=== PATIENT | female | born 1965 | race Caucasian/White ===

== ENCOUNTER 2021-07-02 11:13 | Outpatient (CLI) | payer BC, SELFPAY ==
--- NOTE | 2021-07-02 12:24 | ECG_ITS ---
Measurements Intervals [place] Rate: 51 P: 32 MA: 142 QRS: 67 QRSD: 106 T: 40 QT: 415 QTc: 384 Interpretive Statements SINUS BRADYCARDIA BORDERLINE ECG Electronically Signed On 07-02-2021 13:00:36 CORPORATE DEVELOPMENT MANAGER by Timbo Leung D.O.
[2021-07-02 12:45] LABS: Basophils Percent Auto 0.6 % (0.2-1.2); Eosinophils Absolute Auto 0.2 K/mm3 (0-0.3); Eosinophils Percent Auto 4.6 % (0-4.4); Hematocrit 36.7 % (37.0-47.0); Hemoglobin 12.2 g/dL (12.0-15.0); Immature Granulocyte Absolute 0.01 K/mm3 (0.00-0.031); Immature Granulocyte Percent A 0.2 % (0-0.5); Lymphocytes Absolute Auto 2.16 K/mm3 (0.9-3.2); Lymphocytes Percent Auto 43.2 % (18.3-44.2); Mean Corpuscular HGB Conc 33.2 g/dl (32-36); Mean Corpuscular Hemoglobin 33.3 pg (26-34); Mean Corpuscular Volume 100.3 fl (80-100); Mean Platelet Volume 9.5 fl (7.4-10.4); Monocytes Absolute Auto 0.5 K/mm3 (0.1-0.6); Neutrophils Absolute Auto 2.1 K/mm3 (1.3-6.7); Neutrophils Percent Auto 42.4 % (45.5-73.1); Platelet Count Result 232 k/mm3 (150-375); Red Blood Count 3.66 M/mm3 (4.2-5.4)
[2021-07-02 12:50] LABS: Albumin Level 4.3 g/dL (3.5-5.1)
[2021-07-02 12:54] LABS: Anion Gap 6 mmol/L (8-16); Blood Urea Nitrogen 22 mg/dL (7-17); Calcium 9.9 mg/dL (8.4-10.2); Carbon Dioxide 27 mmol/L (22-30); Chloride 107 mmol/L (98-107); Estimated Glomerular Filt Rate 57; Glucose 90 mg/dL (65-110); Potassium 4.2 mmol/L (3.4-5.0); Sodium 140 mmol/L (137-145)
[2021-07-02 12:56] LABS: Urine Cotinine NEGATIVE
[2021-07-02 13:19] LABS: Hemoglobin A1C 5.2 % (<5.7)
== END 2021-07-02 11:14 | disposition home or self-care (01) ==
PROVIDERS: Anesthesiology; PCP Nurse Practitioner Family; Visit Provider Orthopaedic Surgery
DX: Z01.818 Encounter for other preprocedural examination (principal); M17.12 Unilateral primary osteoarthritis, left knee; Z79.899 Other long term (current) drug therapy
CPT/HCPCS: 80048; 80307; 82040; 83036; 85025; 93005

== ENCOUNTER → 2021-07-13 00:11 | Outpatient (CLI) | payer BC, SELFPAY ==
[2021-07-13 18:14] LABS: SARS-CoV-2 RNA PCR Negative
== END ==
PROVIDERS: PCP Nurse Practitioner Family; Visit Provider Orthopaedic Surgery
DX: Z01.812 Encounter for preprocedural laboratory examination (principal); Z20.822 Contact with and (suspected) exposure to COVID-19
CPT/HCPCS: C9803; U0003; U0005

== ENCOUNTER 2021-07-17 00:40 | Day surgery (SDC) | payer BC, SELFPAY ==
[2021-07-02 11:48] VITALS: BP 98/60; PULSE 48; RESP 18; TEMP 36.3; O2SAT 100
--- NOTE | 2021-07-02 12:04 | PC.NURSE ---
Report to the Outpatient Waiting Room, entrance under the green pavilion located off [facility], at time 0600 AM___ on date _07/17/21__. OR Time: 0730 AM__. - You and your visitor will be asked a series of questions to screen for COVID 19 for your protection. - A mask is required within the hospital. - Only one visitor is allowed at this time. Patient visitors will be guided where to wait when not with patient. Preoperative COVID Testing Requirements: No COVID Test needed if: (proof is required; if not received patient will have Rapid Test prior to entry) - Patient has received COVID Vaccine at least 14 days prior to procedure date or - Patient has positive COVID test result within last 90 days of surgery date. COVID Test needed if above criteria is not met If not COVID vaccinated a COVID test must be conducted within 72 hours of surgery and patient is asked to isolate self from time of testing until procedure. You will go to the [facility] for your COVID testing. The [facility] is located at the corner of [address] [facility]. You will only be called if COVID results are positive and your surgeon may reschedule your elective surgery date. COVID TEST SCHEDULED Thursday07/13/21 @ 0930 AM Patients may have clear liquids (water, carbonated beverages, clear teas, apple juice) until 3 hours prior to surgery (0430 AM) with a maximum of 20 ounces. - No food from midnight until time of surgery - Infants may have breast milk until 4 hours before surgery, infant formula 6 hours prior to surgery. - Children will be allowed to drink immediately following surgery. If applicable, please bring a bottle or sippy cup to assist with drinking. Juice, water, soda, and popsicles are readily available. For infants on formula, please bring formula the day of surgery. Pacifiers are allowed. Take the following medications with a SIP of water the morning of surgery: Medications to discontinue per physician _CALL DR. AVERY REGARDING DICLOFENAC, _MULTI VITAMIN_STOP 3 DAYS PRIOR TO SURGERY Date to take last dose___07/13/21 Please no make-up, nail gambian, hairspray, perfume, deodorant, or body powder the day of surgery. No jewelry (including any body piercings) or valuables the day of surgery, leave them at home. Please take a shower or bath the night before, or the morning of, surgery with an antibacterial soap. Wear comfortable, loose fitting clothing. Children are encouraged to wear pajamas. - Jewelry must be removed prior to entering the operating room. Rings and piercings that are not removed may be cut off. - The hospital will not accept responsibility for valuables. - Please leave all valuables, including medications, at home the day of surgery. If you are going home after surgery, a licensed salesperson driver must drive you home. - NO public transportation without another adult. - We recommend that an adult stay with you for 24 hours following discharge. - We also recommend that you do not drive, make important decision, drink alcoholic beverages, or take any drugs that were not prescribed by your health care provider for at least 24 hours after your discharge time. For Pediatric surgeries, we recommend two adults accompany the child home (only one inside the building at this time). Follow any additional instructions given to you from your surgeon. Telephone instructions given to ___PT___and asked if any additional questions and then verbalized understanding. Patient advised to call surgeon office or pre surgery nurse liaison [phone] if any additional questions.
[2021-07-02 12:29] VITALS: BMI 28.3
--- NOTE | 2021-07-16 12:55 | PM.IMHP ---
H&P: HPI History of Present Illness Date/Time: 07/16/21 12:55 The patient is a 55-year-old female who presents with left knee pain due to primary osteoarthritis chronic in nature. She has aching pain worse with activities and relieved by rest. She has problems squatting kneeling twisting or turning going up and down stairs cannot stand or walk for long periods. Patient has x-rays which show severe primary osteoarthritis left knee joint she has been through cortisone hyaluronic acid injections therapy and anti-inflammatory treatment without long-term relief. Patient has [id number] changes has failed conservative measures at this point she has discussed further treatment options in detail Dr. Roblero she would not to proceed with a left total knee arthroplasty. Chief Complaint: Left knee pain due to primary osteoarthritis left knee joint Review of Systems Review of Systems: All systems reviewed & are unremarkable except as noted in HPI and below PMFSH Social History Social History Smoking status: Former smoker Tobacco type: cigarettes Second hand tobacco smoke exposure: Yes Smoking end date: 06/12/21 Additional smoking assessment comments: STATES 1PK/2-3 DAYS/25+YRS Alcohol intake: current Drinks per week: 2 Substance use: current Substance use type: marijuana Other substance usage details: STATES SMOKES AT [facility] TO HELP SLEEP Last use: 08/31/20 Spiritual care concerns: No Meds Home Medications and Allergies Home Medications Medication Instructions Recorded Confirmed Type diclofenac sodium 75 mg PO BID 07/02/21 07/02/21 History hydrochlorothiazide 25 mg QAM 07/02/21 07/02/21 History lisinopril 20 mg QAM 07/02/21 07/02/21 History multivitamin [Multi-Vitamins] 1 tablet PO QAM 07/02/21 07/02/21 History Allergies Allergy/AdvReac Type Severity Reaction Status Date / Time No Known Allergies Allergy Verified 07/02/21 11:55 Exam Narrative: On exam the patient is noted be a well-developed well-nourished female no acute distress alert oriented x3. Normal mood and affect. She is noted to be 5 ft 5 in tall 168 lb. Hearing and vision intact. Respiratory is good no distress. Pulse regular rate rhythm. Abdomen benign. Extremities showed the patient's left knee to be painful with manipulation range of motion. She has crepitation through the arc of motion varus deformity with medial joint line pain left knee. Motion is fairly well maintained. Neurovascularly she is intact knee joint is otherwise stable strength is 5 5 x-rays show advanced coor-fs-abht changes medial compartment left knee. There is no erythema heat effusion or signs of infection. Neurovascularly she is intact skin is intact. Central nervous system exam within normal limits. Assessment and Plan Additional Plan Patient has severe primary osteoarthritis left knee joint. The patient has discussed risks benefits limitations and alternatives to surgery in great detail with Dr. Roblero, the patient is now ready to proceed with a left total knee arthroplasty. The patient is scheduled to undergo surgery 07/17/2021 at [facility] with Dr. Roblero. The patient voiced understanding and agrees with the above plan.
[2021-07-17] VITALS (13 sets, daily range): BP systolic 102–161; BP diastolic 55–89; PULSE 60–100; RESP 10–20; TEMP 36.2–37.2; O2SAT 92–100
--- NOTE | ~2021-07-17 | XR_ITS ---
EXAMINATION: XR knee LT 2V DATE: 07/17/2021 09:36 INDICATION: Postoperative evaluation following left total knee arthroplasty. TECHNIQUE: Anteroposterior and lateral views of the left knee were obtained. COMPARISON: None. FINDINGS: Left total knee arthroplasty with patellar resurfacing appears well seated and in near anatomic align ment. No fractures identified. Skin jolly and expected postoperative subcutaneous and intra-articu lar gas. IMPRESSION: 1. Left total knee arthroplasty, negative for postoperative purposes. Reviewed, dictated and finalized at location A. EL MANAGER
[2021-07-17] MEDS: LACTATED RINGERS 1,000 ML 30 ML IV CONT ×2 (06:30→09:27)
[2021-07-17] MEDS: ACETAMINOPHEN 500 MG TABLET 1000 MG PO (06:30)
[2021-07-17] MEDS: TRANEXAMIC ACID 1,000MG/ISO100 1,000 MG/100 ML BAG 200 MG IVPB (06:48)
--- NOTE | 2021-07-17 07:10 | WPDANESEPP ---
Anes - Eval Pre Procedure Procedure: Operation Date: 07/17/21 07:30 Proposed Procedures p Left Total Knee Arthroplasty - Ricardo Roblero MD Date/Time: 07/17/21 07:10 Pre Op Diagnosis: OA Left Knee Patient Data Age: 55 Gender: F Height: 1.63 m Weight: 75.6 kg Last Vital Signs Temp 36.2 C L 07/17/21 06:19 Pulse 65 07/17/21 06:19 Resp 20 07/17/21 06:19 BP 102/60 07/17/21 06:19 Pulse Ox 98 07/17/21 06:19 Allergies Allergy/AdvReac Type Severity Reaction Status Date / Time No Known Allergies Allergy Verified 07/17/21 06:26 Home Medications Medication Instructions Recorded Confirmed Type diclofenac sodium 75 mg PO BID 07/02/21 07/17/21 History hydrochlorothiazide 25 mg QAM 07/02/21 07/17/21 History lisinopril 20 mg QAM 07/02/21 07/17/21 History multivitamin [Multi-Vitamins] 1 tablet PO QAM 07/02/21 07/17/21 History Patient hx anesthesia problems: none Family hx anesthesia problems: none Results Review: All pre-operative results and documents have been reviewed as part of the pre-operative evaluation. [facility] Social History Social History Smoking status: Former smoker Tobacco type: cigarettes Second hand tobacco smoke exposure: Yes Smoking end date: 06/12/21 Additional smoking assessment comments: STATES 1PK/2-3 DAYS/25+YRS Alcohol intake: current Drinks per week: 2 Substance use: current Substance use type: marijuana Other substance usage details: STATES SMOKES AT [facility] TO HELP SLEEP Last use: 08/31/20 Living arrangements: alone Spiritual care concerns: No Exam Day of Procedure 07/17/21 07:10
--- NOTE | 2021-07-17 07:14 | WPDHPUPDATE1 ---
History and Physical Update Update Date/Time: 07/17/21 07:14 History and Physical has been reviewed, including an updated exam of the patient. There are NO changes in the patient's condition. Risks, benefits, and alternatives have been discussed and questions answered. Patient agrees to proceed with procedure.
--- NOTE | 2021-07-17 07:19 | WPDANESEFPP ---
Anes - Eval Final PreProcedure Day of Procedure 07/17/21 07:19 Patient weight: overweight Heart: regular rate and rhythm Lungs: clear to auscultation Airway: Mallampati scale class II Neurological: alert and oriented Last oral intake: >/= 8 hours ASA classification: III Emergent: no Anesthetic plan: proceed Anesthesia type and monitoring: general LMA and standard monitoring Results Review: All pre-operative results and documents have been reviewed as part of the pre-operative evaluation. Informed Consent: The patient's anesthetic plan and its attendant risks and benefits were discussed with the patient/family/POA. Questions were solicited and answers provided to the satisfaction of the patient/family/POA.
[2021-07-17] MEDS: ceFAZolin 2 GM/D5W 50 ML 2 GM/50 ML BAG IVPB (07:27)
[2021-07-17] MEDS: GENTAMICIN BONE CEMENT REFOBACIN 1 EACH TOPICAL (07:54)
--- NOTE | 2021-07-17 08:52 | W.PM.PROC2 ---
Procedure Note - Detailed Date of Procedure 07/17/21 Pre-op Diagnosis OA Left Knee Post-op Diagnosis same Procedure Performed [Left] total knee arthroplasty Surgeon Ricardo Roblero MD Youth Services Specialist Jose Best Anesthesia general Description of Procedure The patient was brought to the operating room. General anesthetic was administered. Placed on the operating table and sterilely prepped and draped in usual manner. A longitudinal incision was made. Tourniquet inflated to 300 mmHg for a total of [time] minutes. Dissection carried down to the fascia. Medial parapatellar incision was made and the patella subluxated laterally. Patella cut from [25] to [15] mm and sized for a [34] mm button. The tibia cut perpendicular to the long axis and femur cut in 5 degrees of valgus, a [65] femur trialed. [67] tibia was felt to fit the best. The soft tissue balanced, hemostasis obtained. All [address], [67] tibia, [65] femur, [34] mm patella, and [12mm ] mm poly. Motion was 0-125 degrees with good stablility and flexion and extension. The wound was closed with #2 vicryl, 2-0 Vicryl and jolly. Estimated Blood Loss 200 Drains No Packing No Pathology none sent Complications No immediate complications Condition stable Disposition PACU
[2021-07-17] MEDS: fentaNYL CITRATE INJ (*CRX) 100 MCG/2 ML VIAL 25 MCG IV PUSH ×4 (09:41→10:05)
[2021-07-17] MEDS: HYDROmorphone HCL INJ (*CRX) 1 MG/ML SYR 0.5 MG IV PUSH ×2 (10:21→10:37)
--- NOTE | 2021-07-17 11:34 | ADMGEN ---
This patient, Adela Becker, was admitted to Medical Room 255-01. Patient/family oriented to hospital policies and general routines including ID bracelet, bed and alarms, visiting hours, pain management, procedures, bathroom and other care routines, personal items, smoking policy, room service/diet, and visiting hours. Information on how to activate the Rapid Response Team has been discussed. Patient/Family are encouraged to report perceived risks to care and to ask questions if they do not understand what they are told or what they should do.
[2021-07-17] MEDS: SENNA/DOCUSATE SODIUM TABLET 2 TAB PO ×2 (11:43→17:08)
[2021-07-17] MEDS: polyethylene glycoL 3350 17 GM POWD.PACK PO (11:43)
[2021-07-17] MEDS: lisinopriL 20 MG TABLET PO (11:43)
[2021-07-17] MEDS: HYDROcodone/acetaminophen (*CRX) 7.5-325 MG TABLET 1 TAB PO ×2 (11:43→22:55)
--- NOTE | 2021-07-17 13:00 | P.CONIM_ITS ---
Assessment and Plan Assessment and plan (1) Total knee replacement status: Code(s): Z96.659 - Presence of unspecified artificial knee joint Status: Acute Assessment and Plan: * Postop day 0 * postop care to be managed by Dr. Roblero * pain: oxycodone 2.5 mg p.o. Q 4 p.r.n., Percocet 1 tablet p.o. Q 4 p.r.n., [place] 1 tablet p.o. q.6 p.r.n., Celebrex 200 mg p.o. twice a day * bowel maintenance: MiraLax, senna * Ancef x3 bags * PT and OT * Xarelto 10 mg p.o. times 12 doses (2) HTN (hypertension): Code(s): I10 - Essential (primary) hypertension Status: Acute Assessment and Plan: * current blood pressure 145/74 * continue patient's home lisinopril 20 mg p.o. daily and hydrochlorothiazide 25 mg p.o. daily * trend blood pressure * adjust therapy as indicated (3) Overweight: Code(s): E66.3 - Overweight Status: Acute Assessment and Plan: * BMI 28.6 * lifestyle changes * supportive care (4) Marijuana use: Code(s): F12.90 - Cannabis use, unspecified, uncomplicated Status: Acute Assessment and Plan: * patient uses to help with rest at night * education about cessation (5) Cigarette smoker: Code(s): F17.210 - Nicotine dependence, cigarettes, uncomplicated Status: Acute Assessment and Plan: * patient smokes about 1 pack every 2-3 days for 25 years * smoking cessation * nicotine patch and gum ordered Additional Plan thank you for asking us to be a consult feel free to call us with help her questions. HPI Data of Consult Consult date: 07/17/21 Requesting Physician: Ricardo Roblero MD Primary Care Provider: Rosalie Santiago, SECURITY SYSTEM INSTALLER Consult Narrative Narrative: Date of service: 07/17/21 Tayla Becker is a 55 year old female With a past medical history os teoarthritis and hypertension who had an elective left total knee replacement by Dr. Roblero on 07/17/2021. Patient has been experiencing arthritis that has induced pain, immobility, and swelling that was never relieved by rest. Patient is currently out of surgery and is doing well. Sitting up in bed and she is eating. She feels again states that her pain is about a 5/10. Patient denies any other symptomatology including chest pain, shortness of breath, nausea, vomiting, diarrhea, constipation, sweats, fevers, chills. Review of Systems Review of Systems: All systems reviewed & are unremarkable except as noted in HPI and below PMFSH Past Medical History Medical History (Updated 07/17/21 @ 13:15 by BALTA Linton) HTN (hypertension) Surgical History Surgical History (Updated 07/17/21 @ 13:15 by BALTA Linton) Total knee replacement status Left Family History Family History (Updated 07/17/21 @ 13:15 by BALTA Linton) Mother Carcinoma of colon Social History Social History (Updated 07/17/21 @ 13:17 by BALTA Linton) Social History: Patient currently lives with her twin sister. Patient denies having pets or kids. Patient wishes to be a full code and her sister Mar is going to be her surrogate if decisions to be made. Smoking status: Current some day smoker Tobacco type: cigarettes Second hand tobacco smoke exposure: Yes Smoking end date: 06/12/21 Additional smoking assessment comments: STATES 1PK/2-3 DAYS/25+YRS Alcohol intake:
--- NOTE | 2021-07-17 13:00 | PM.IMCN ---
Assessment and Plan Assessment and plan (1) Total knee replacement status: Code(s): Z96.659 - Presence of unspecified artificial knee joint Status: Acute Assessment and Plan: Postop day 0 postop care to be managed by Dr. Roblero pain: oxycodone 2.5 mg p.o. Q 4 p.r.n., Percocet 1 tablet p.o. Q 4 p.r.n., [place] 1 tablet p.o. q.6 p.r.n., Celebrex 200 mg p.o. twice a day bowel maintenance: MiraLax, senna Ancef x3 bags PT and OT Xarelto 10 mg p.o. times 12 doses (2) HTN (hypertension): Code(s): I10 - Essential (primary) hypertension Status: Acute Assessment and Plan: current blood pressure 145/74 continue patient's home lisinopril 20 mg p.o. daily and hydrochlorothiazide 25 mg p.o. daily trend blood pressure adjust therapy as indicated (3) Overweight: Code(s): E66.3 - Overweight Status: Acute Assessment and Plan: BMI 28.6 lifestyle changes supportive care (4) Marijuana use: Code(s): F12.90 - Cannabis use, unspecified, uncomplicated Status: Acute Assessment and Plan: patient uses to help with rest at night education about cessation (5) Cigarette smoker: Code(s): F17.210 - Nicotine dependence, cigarettes, uncomplicated Status: Acute Assessment and Plan: patient smokes about 1 pack every 2-3 days for 25 years smoking cessation nicotine patch and gum ordered Additional Plan thank you for asking us to be a consult feel free to call us with help her questions. HPI Data of Consult Consult date: 07/17/21 Requesting Physician: Ricardo Roblero MD Primary Care Provider: Rosalie Santiago, TEST TECH Consult Narrative Narrative: Date of service: 07/17/21 1300 Adela Becker is a 55 year old female With a past medical history osteoarthritis and hypertension who had an elective left total knee replacement by Dr. Roblero on 07/17/2021. Patient has been experiencing arthritis that has induced pain, immobility, and swelling that was never relieved by rest. Patient is currently out of surgery and is doing well. Sitting up in bed and she is eating. She feels again states that her pain is about a 5/10. Patient denies any other symptomatology including chest pain, shortness of breath, nausea, vomiting, diarrhea, constipation, sweats, fevers, chills. Review of Systems Review of Systems: All systems reviewed & are unremarkable except as noted in HPI and below PMFSH Past Medical History Medical History (Updated 07/17/21 @ 13:15 by BALTA Linton) HTN (hypertension) Surgical History Surgical History (Updated 07/17/21 @ 13:15 by BALTA Linton) Total knee replacement status Left Family History Family History (Updated 07/17/21 @ 13:15 by BALTA Linton) Mother Carcinoma of colon Social History Social History (Updated 07/17/21 @ 13:17 by BALTA Linton) Social History: Patient currently lives with her twin sister. Patient denies having pets or kids. Patient wishes to be a full code and her sister Mar is going to be her surrogate if decisions to be made. 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
[2021-07-17] MEDS: oxyCODONE/ACETAMINOPHEN (*CRX) 5-325 MG TABLET 1 TABLET PO (14:47)
[2021-07-17] MEDS: RIVAROXABAN 10 MG TABLET PO (17:08)
[2021-07-17] MEDS: CELECOXIB 200 MG CAPSULE PO (17:08)
[2021-07-18 00:45] VITALS: BP 127/58; PULSE 90; RESP 16; TEMP 37.2; O2SAT 94
[2021-07-18] MEDS: oxyCODONE HCL (*CRX) 2.5 MG TAB IR PO (02:34)
[2021-07-18 04:45] VITALS: BP 127/84; PULSE 113; RESP 18; TEMP 37; O2SAT 98
[2021-07-18] MEDS: oxyCODONE/ACETAMINOPHEN (*CRX) 5-325 MG TABLET 1 TABLET PO ×2 (05:16→08:48)
[2021-07-18 06:01] LABS: Basophils Percent Auto 0.2 % (0.2-1.2); Hematocrit 30.9 % (37.0-47.0); Hemoglobin 10.7 g/dL (12.0-15.0); Immature Granulocyte Absolute 0.05 K/mm3 (0.00-0.031); Immature Granulocyte Percent A 0.5 % (0-0.5); Lymphocytes Absolute Auto 2.14 K/mm3 (0.9-3.2); Lymphocytes Percent Auto 22.2 % (18.3-44.2); Mean Corpuscular HGB Conc 34.6 g/dl (32-36); Mean Corpuscular Hemoglobin 34.1 pg (26-34); Mean Corpuscular Volume 98.4 fl (80-100); Mean Platelet Volume 9.4 fl (7.4-10.4); Neutrophils Absolute Auto 6.5 K/mm3 (1.3-6.7); Neutrophils Percent Auto 67.1 % (45.5-73.1); Platelet Count Result 198 k/mm3 (150-375); Red Blood Count 3.14 M/mm3 (4.2-5.4); Red Cell Distribution Width 12.7 % (11.5-14.5); White Blood Count 9.6 K/mm3 (4.5-10.0)
[2021-07-18 06:16] LABS: Anion Gap 6 mmol/L (8-16); Blood Urea Nitrogen 28 mg/dL (7-17); Calcium 9.3 mg/dL (8.4-10.2); Carbon Dioxide 25 mmol/L (22-30); Chloride 105 mmol/L (98-107); Estimated CRCL calculation 50 ml/min; Estimated Glomerular Filt Rate 51; Glucose 130 mg/dL (65-110); Potassium 3.6 mmol/L (3.4-5.0); Sodium 136 mmol/L (137-145)
--- NOTE | 2021-07-18 08:09 | PM.IMPN ---
Progress Note: A&P Assessment and Plan (1) Total knee replacement status: Code(s): Z96.659 - Presence of unspecified artificial knee joint Status: Acute Assessment and Plan: Postop day 1 and doing well - postop care to be managed by Dr. Roblero - will need DVT prophylaxis at discharge, discussed with RN - continue [place] for pain -will need to complete stairs with PT prior to d/c. She lives in the basement with her sister upstairs. (2) HTN (hypertension): Code(s): I10 - Essential (primary) hypertension Status: Acute Assessment and Plan: current blood pressure 127/84 -continue patient's home lisinopril 20 mg p.o. daily and hydrochlorothiazide 25 mg p.o. daily (3) Overweight: Code(s): E66.3 - Overweight Status: Acute Assessment and Plan: BMI 28.6 - encouraged lifestyle changes (4) Marijuana use: Code(s): F12.90 - Cannabis use, unspecified, uncomplicated Status: Acute Assessment and Plan: chronic, encouraged lifestyle changes (5) Cigarette smoker: Code(s): F17.210 - Nicotine dependence, cigarettes, uncomplicated Status: Acute Assessment and Plan: patient smokes about 1 pack every 2-3 days for 25 years - encouraged lifestyle changes Time Spent With Patient Time with patient: 25 - 35 minutes Subjective Date/time seen: 07/18/21 08:09 Interval history: Pt is a 55-year-old female here for left total knee arthroplasty. Patient was seen today and states she is feeling better. She still has some pain to the left knee but is able to do physical therapy. She has some numbness around the incision site but no numbness to her leg. she is eating and drinking well with no nausea, vomiting or diarrhea. She has no chest pain or shortness of breath. She does have about 12 stairs going down into her basement and I told her that she will have to do stairs with physical therapy before being able to go home. She has no medical concerns at this time. Review of Systems Review of Systems: All systems reviewed & are unremarkable except as noted in HPI and below Exam Narrative: General: Well developed well nourished patient in NAD HEENT: normocephalic Neck: supple Neuro: Alert and oriented x4 CV:RRR Resp:CTA Abd: Soft, non distended. No pain to palpation. Positive bowel sounds Extremities: left knee incision site clean and dry without drainage, erythema, or warmth. Pulses and sensation intact to the distal leg. Objective Data Vital Signs Vital Signs: Vital Signs - 24 hr 07/17/21 09:27 07/17/21 09:40 07/17/21 09:55 Temperature 97.3 F L Pulse Rate 98 83 86 Respiratory Rate 15 10 L 13 Blood Pressure 161/89 H 132/74 138/79 Pulse Oximetry 100 100 100 07/17/21 10:10 07/17/21 10:25 07/17/21 10:35 Temperature Pulse Rate 82 80 100 Respiratory Rate 14 10 L 17 Blood Pressure 139/60 131/82 125/82 Pulse Oximetry 92 95 97 07/17/21 11:00 07/17/21 11:15 07/17/21 11:45 Temperature 97.3 F L 97.3 F L 97.3 F L Pulse Rate 70 89 68 Respiratory Rate 18 18 18 Blood Pressure 147/86 H 146/78 H 145/74 H Pulse Oximetry 96 97 93 07/17/21 12:45 07/17/21 16:45 07/17/21 20:41 Temperature 97.3 F L 97.3 F L 98.9 F Pulse Rate 60 60 70 Respiratory Rate 18 18 16 Blood Pressure 129/73 125/55 L 122/64 Pulse Oximetry 94 94 96 07/18/21 00:45 07/18/21 04:45 Temperature 99.0 F 98.6 F Pulse Rate 90 113 H Respiratory Rate 16 18 Blood Pressure 127/58 L 127/84 Pulse Oximetry 94 98 Intake/Output Intake/Output: Intake & Output 07/15/21 07/16/21 07/17/21 07/18/21 23:59 23:59 23:59 23:59 Intake Total 1660 600 Balance 1660 600 Meds/Results Medications: Active Medications Generic Name Dose Route Start Last Admin Trade Name Freq PRN Reason Stop Dose Admin Hydrocodone Bitart/Acetaminophen 1 tab 07/17/21 10:39 07/17/21 22:55 Hydrocodone/Acetaminophen (*Crx) 7.5-325 Mg Tablet PO
[2021-07-18 08:45] VITALS: BP 132/65; PULSE 64; RESP 18; TEMP 37.2; O2SAT 99
[2021-07-18] MEDS: lisinopriL 20 MG TABLET PO (08:48)
[2021-07-18] MEDS: CELECOXIB 200 MG CAPSULE PO (08:48)
[2021-07-18] MEDS: hydroCHLOROthiazide 25 MG TABLET PO (08:48)
[2021-07-18] MEDS: SENNA/DOCUSATE SODIUM TABLET 2 TAB PO (08:48)
[2021-07-18] MEDS: polyethylene glycoL 3350 17 GM POWD.PACK PO (08:48)
== END 2021-07-18 11:10 | disposition home or self-care (01) ==
LOC: ANHSURGERY 06:07 → ANH2MED 10:41
PROVIDERS: PCP Nurse Practitioner Family; Visit Provider Orthopaedic Surgery
PROC: (CPT 27447; principal; 2021-07-17 07:30)
DX: M17.12 Unilateral primary osteoarthritis, left knee (principal); I10 Essential (primary) hypertension; F12.90 Cannabis use, unspecified, uncomplicated; E66.3 Overweight; Z68.28 Body mass index [BMI] 28.0-28.9, adult; F17.210 Nicotine dependence, cigarettes, uncomplicated
CPT/HCPCS: 27447; 36415; 73560; 80048; 85025; 86850; 86900; 86901; 97110; 97116; 97161; 97165; A9270; C1713; C1776; J0171; J0690; J1100; J1170; J1200; J1885; J2250; J2270; J2370; J2405; J2704; J2795; J3010; J3370; J7120

== ENCOUNTER 2024-04-05 09:01 | Emergency (ER) | payer SELFPAY ==
[2024-04-05] VITALS (12 sets, daily range): BP systolic 110–157; BP diastolic 74–103; PULSE 57–75; RESP 14–23; TEMP 36.6; O2SAT 95–99
--- NOTE | ~2024-04-05 | XR_ITS ---
XR chest 2V Ordering provider: Shani Raygoza MD History: 58 years Female with . CP . Comparison: None. FINDINGS: MEDIASTINUM: The cardiac silhouette is not enlarged. LUNGS: No infiltrates, effusions or pneumothorax. OTHER: No free air under the diaphragm. Degenerative changes of the spine. IMPRESSION: No acute cardiopulmonary pathology. Reviewed, dictated and finalized at location A.
--- NOTE | ~2024-04-05 | CT_ITS ---
CTA chest PE protocol Ordering provider: Shani Raygoza MD History: 58 years Female with . PULMONARY EMBOLISM . Comparison: None. Technique: CT angiogram chest was performed following timed intravenous injection of contrast. Thin s lice axial images and reformatted coronal images were obtained. Three dimensional reformatted images of the chest were also obtained using a [employer] workstation. . Automated exposure control and iterati ve reconstruction technique were employed. The dose-length product was 629.27 mGy-cm. 100 mL Omnipaqu e 350 was given IV. Findings: PULMONARY ARTERIES: No pulmonary embolus. VISUALIZED THORACIC INLET: Normal. MEDIASTINUM: Aorta/coronary arteries: Mild atheromatous disease. Heart/other: The heart is not enlarged. Lymph nodes: No mediastinal or hilar adenopathy. LUNGS: 5 mm nodule is seen in the middle lobe. 6 mm nodule is seen in the lingula. No pulmonary masses. No i nfiltrates or effusions. No pneumothorax. Dependent atelectatic changes. Underlying fibrotic changes of the lungs. VISUALIZED UPPER ABDOMEN: Dionicio hepatis lymph nodes are seen with the largest measures 1.9 cm. Fecal material is loaded in the colon. Small sliding atelectasis hernia. Otherwise, the visualized upper ab domen is normal. MUSCULOSKELETAL: Soft tissues: The superficial soft tissues are normal. Bones: Age appropriate degenerative changes of the spine. IMPRESSION: 1. No pulmonary embolism. 2. No acute cardiopulmonary pathology. 3. 2. Nodules in the right middle lobe and lingula with the largest measures 6 mm. 3-6 months follow -up with low dose CT is advised. 4. Lymphadenopathy in the dionicio hepatis area. Further evaluation advised. 5. Constipation. Reviewed, dictated and finalized at location A. IMPRESSION: 1. No pulmonary embolism. 2. No acute cardiopulmonary pathology. 3. 2. Nodules in the right middle lobe and lingula with the largest measures 6 mm. 3-6 months follow-up with low dose CT is advised. 4. Lymphadenopathy in the dionicio hepatis area. Further evaluation advised. 5. Constipation.
--- NOTE | 2024-04-05 09:02 | ECG_ITS ---
Test Date: 2024-04-05 09:11:55 Measurements Intervals [place] Rate: 63 P: 32 [place]: 126 QRS: 34 QRSD: 90 T: 18 QT: 385 QTc: 396 Interpretive Statements SINUS RHYTHM No previous ECG available for comparison Electronically Signed On 04-05-2024 11:58:55 CDT by Gayla Nichole M.D.
--- NOTE | 2024-04-05 09:04 | ED.CHESTPAIN ---
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 CURRENTLY PATIENT IS ASYMPTOMATIC. HISTORY OF HYPERTENSION, TOBACCO DEPENDENCE, DRINKS ALCOHOL DAILY, USES MARIJUANA DAILY. DENIES FAMILY HISTORY OF CORONARY ARTERY DISEASE MD complaint: chest pain Related Data Home Medications Medication Instructions Recorded Confirmed diclofenac sodium 75 mg 75 mg PO BID 07/02/21 07/17/21 tablet,delayed release hydrochlorothiazide 25 mg tablet 25 mg QAM 07/02/21 07/17/21 lisinopril 20 mg tablet 20 mg QAM 07/02/21 07/17/21 multivitamin 1 tablet PO QAM 07/02/21 07/17/21 Allergies Allergy/AdvReac Type Severity Reaction Status Date / Time No Known Allergies Allergy Verified 07/17/21 06:26 Review of Systems Review of Systems: All systems reviewed & are unremarkable except as noted in HPI and below PMFSH Past Medical History Medical History HTN (hypertension) Surgical History Surgical History Total knee replacement status Left Family History Family History Mother Carcinoma of colon Social History Social History Social History: Patient currently lives with her twin sister. Patient denies having pets or kids. Patient wishes to be a full code and her sister Mar is going to be her surrogate if decisions to be made. 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 Gender identity (if verbalized by the patient): Female Sexual Orientation (if Verbalized by the Patient): Straight or Heterosexual Spiritual care concerns: No Agree to blood products: Yes Exam Narrative: GENERAL APPEARANCE: WELL-DEVELOPED, WELL-NOURISHED SKIN: NORMAL COLOR HEAD: NORMOCEPHALIC, NONTRAUMATIC EYES: CLEAR CONJUNCTIVA ENT: OROPHARYNX NORMAL, EARS NORMAL, NOSE NORMAL NECK: SUPPLE, NONTENDER CHEST AND RESPIRATORY: AIRWAY PATENT, NO RESPIRATORY DISTRESS, NO ACCESSORY MUSCLE USE HEART: REGULAR RATE/RHYTHM ABDOMEN: SOFT, NONTENDER, NO ORGANOMEGALY, QUIET BOWEL SOUNDS VASCULAR: NORMAL PERIPHERAL PULSES, NORMAL CAPILLARY REFILL. 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
[2024-04-05 09:30] LABS: Basophils Percent Auto 0.7 % (0.2-1.2); Eosinophils Absolute Auto 0.3 K/mm3 (0-0.3); Eosinophils Percent Auto 4.4 % (0-4.4); Hematocrit 38.9 % (37.0-47.0); Immature Granulocyte Absolute 0.01 K/mm3 (0.00-0.031); Immature Granulocyte Percent A 0.2 % (0-0.5); Lymphocytes Absolute Auto 1.92 K/mm3 (0.9-3.2); Lymphocytes Percent Auto 32.7 % (18.3-44.2); Mean Corpuscular HGB Conc 33.4 g/dl (32-36); Mean Corpuscular Hemoglobin 34.1 pg (26-34); Mean Corpuscular Volume 102.1 fl (80-100); Mean Platelet Volume 9.6 fl (7.4-10.4); Monocytes Absolute Auto 0.5 K/mm3 (0.1-0.6); Monocytes Percent Auto 8.3 % (2.6-8.5); Neutrophils Absolute Auto 3.2 K/mm3 (1.3-6.7); Neutrophils Percent Auto 53.7 % (45.5-73.1); Platelet Count Result 235 k/mm3 (150-375); Red Blood Count 3.81 M/mm3 (4.2-5.4); Red Cell Distribution Width 13.3 % (11.5-14.5); White Blood Count 5.9 K/mm3 (4.5-10.0)
[2024-04-05] MEDS: ASPIRIN 81 MG CHEWABLE TABLET 324 MG PO (09:38)
[2024-04-05 09:42] LABS: Alanine Aminotransferase 29 U/L (6-35); Alkaline Phosphatase 71 U/L (38-126); Anion Gap 9 mmol/L (4-12); Aspartate Amino Transferase 31 U/L (14-36); Bilirubin,Total 0.3 mg/dL (0.2-1.3); Blood Urea Nitrogen 19 mg/dL (7-17); Calcium 9.4 mg/dL (8.4-10.2); Carbon Dioxide 22 mmol/L (22-30); Chloride 110 mmol/L (98-107); Estimated CRCL calculation 52 ml/min; Estimated Glomerular Filt Rate 57; Glucose 114 mg/dL (65-110); Lipase 111 U/L (23-300); Potassium 3.9 mmol/L (3.4-5.0); Sodium 141 mmol/L (137-145)
[2024-04-05 09:43] LABS: INR 1.1; Prothrombin Time 14.5 Seconds (11.1-14.7)
[2024-04-05 09:44] LABS: Partial Thromboplastin Time 26.8 Seconds (22.3-36.8)
[2024-04-05 09:54] LABS: Troponin I < 0.012 ng/mL (0.000-0.034)
--- NOTE | 2024-04-05 12:39 | ECG_ITS ---
Test Date: 2024-04-05 12:52:15 Measurements Intervals [place] Rate: 60 P: 27 GA: 140 QRS: 56 QRSD: 90 T: 42 QT: 401 QTc: 403 Interpretive Statements SINUS RHYTHM Compared to ECG 04/05/2024 09:11:55 No significant changes Electronically Signed On 04-05-2024 13:45:35 CDT by Gayla Nichole M.D.
[2024-04-05 12:44] LABS: Troponin I < 0.012 ng/mL (0.000-0.034)
== END 2024-04-05 12:58 | disposition home or self-care (01) ==
PROVIDERS: Emergency Provider Emergency Medicine; PCP Nurse Practitioner Family
DX: R07.89 Other chest pain (principal); I10 Essential (primary) hypertension; Z96.652 Presence of left artificial knee joint; Z87.891 Personal history of nicotine dependence; Z79.899 Other long term (current) drug therapy
CPT/HCPCS: 36415; 71046; 71275; 80053; 83690; 84484; 85025; 85380; 85610; 85730; 93005; 99284; A9270; Q9967